=== PATIENT | female | born 1960 | race Two or more races ===

== ENCOUNTER → 2025-04-14 | Outpatient (CLI) | payer MEDICAID, SELFPAY ==
--- NOTE | 2025-04-14 09:45 | XR_ITS ---
Examination: Screening digital mammography, bilateral Computer aided detection 3-D breast Tomosynthesis, bilateral Date and time of exam: April 14, 2025 0940 hours Compared to mammograms dating to October 30, 2011 Indication: Screening Technique: Nonmagnified MLO, CC views of the breasts to been obtained, reconstructed from 3-D Tomosynthesis images. R2 computer aided detection program utilized for evaluation of suspicious masses and/or abnormal calcifications. 3-D Tomosynthesis images obtained. Findings: Scattered areas of fibroglandular density. 6 mm nodule indistinct margins 9:00 position left breast posterior depth Impression: BI-RADS Category 0: Incomplete: Need additional imaging evaluation Recommend follow-up spot tomographic views of 6 mm nodule indistinct margins 9:00 position left breast as well as bilateral breast sonography to complete the workup
== END | disposition home or self-care (01) ==
LOC: CDIM 09:32
PROVIDERS: Referring Provider Nurse Practitioner Primary Care; Visit Provider Nurse Practitioner Primary Care
DX: Z12.31 Encounter for screening mammogram for malignant neoplasm of breast (principal); R92.323 Mammographic fibroglandular density, bilateral breasts; N63.25 Unspecified lump in the left breast, overlapping quadrants
CPT/HCPCS: 77063; 77067

== ENCOUNTER → 2025-06-16 | Outpatient (CLI) | payer MEDICARE, MEDICAID, SELFPAY ==
--- NOTE | 2025-06-16 09:31 | XR_ITS ---
Examination: PA lateral chest 2 views TECHNIQUE: Upright PA lateral chest 2 views Date and time: June 16, 2025 0956 hours, comparison March 21, 2020. INDICATIONS: Shortness of breath with walking beginning one week ago, hypertension history. FINDINGS: Large retrocardiac gastric hernia. Mild enlargement left ventricle. Increased AP dimension chest Mild vascular congestion. No pulmonary edema. Severe osteopenia, kyphosis dorsal spine secondary to minor chronic osteoporotic wedging dorsal vertebral bodies IMPRESSION: COPD with hyperexpansion Mild enlargement left ventricle Mild vascular congestion
== END | disposition home or self-care (01) ==
PROVIDERS: PCP Nurse Practitioner Primary Care; Referring Provider Nurse Practitioner Primary Care; Visit Provider Nurse Practitioner Primary Care
DX: J44.9 Chronic obstructive pulmonary disease, unspecified (principal); I51.7 Cardiomegaly; R09.89 Other specified symptoms and signs involving the circulatory and respiratory systems
CPT/HCPCS: 71046

== ENCOUNTER 2025-06-19 12:16 | Inpatient (IN) | payer MEDICARE, MEDICAID, SELFPAY ==
[2025-06-19] VITALS (12 sets, daily range): BP systolic 109–143; BP diastolic 49–84; PULSE 56–107; RESP 16–22; TEMP 36.1–37.3; O2SAT 95–98; BMI 31.1; BMI 32.9
--- NOTE | 2025-06-19 12:46 | EKG_ITS ---
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
--- NOTE | 2025-06-19 12:46 | XR_ITS ---
Examination: CT abdomen with intravenous contrast CT pelvis with intravenous contrast 2-D coronal reconstructions 2-D sagittal reconstructions Date and time of exam:June 19, 2025 1509 hours INDICATIONS: Severe anemia, 6.3 hemoglobin. CTDI: vol (mGy) 10.6 DLP: (mGycm) 529 Technique: Multiple axial sections of the abdomen and pelvis have been obtained. 64 slice high-resolution scanner used. 3 mm axial sections have been obtained, post intravenous injection 60 cc [id number] 2-D sagittal, coronal reconstructions obtained. Low dose protocols were performed. One or more of the following dose reduction techniques were used; automated exposure control, adjustment of the mA and/or KV according to patient size, use of iterative reconstruction technique. Findings: No focal liver or splenic lesions No gallstones No pancreatic or adrenal mass. No renal or ureteral calculi, no hydronephrosis Abdominal aortic calcification no aneurysmal dilatation 10 mm fat-containing umbilical hernia Normal appendix No bowel obstruction Colonic diverticulosis, no diverticulitis Atrophic anteverted uterus No pelvic mass Urinary bladder intact Grade 1 anterolisthesis L5 on S1 Moderate to advanced narrowing hip joints IMPRESSION: No renal or ureteral calculi, no hydronephrosis Normal appendix No bowel obstruction Colonic diverticulosis, no diverticulitis
--- NOTE | 2025-06-19 12:47 | PD.EDRECHK ---
ED Recheck Abnl Lab Rx-RME/HPI General Chief Complaint: Recheck/Abnormal Lab/Rx Stated Complaint: HGB 6.2 Time Seen by Provider: 06/19/25 12:24 Arrival date/time: 06/19/25 12:16 RME / HPI RME / HPI narrative: 65-year-old female patient with significant history of hypertension, was sent to us by PCP for evaluation regarding hemoglobin of 6.3. Patient had a blood drawn in the clinic last week, and today was sent to us because result came back with a hemoglobin of 6.3, patient was noted to be more pale than usual, complaining of sleeping a lot, and low energy. Patient also complained shortness of breath with exertion. Denies any vomiting blood denies any black tarry stool. Patient's been taking diclofenac on a regular basis due to arthritis. Denies any abdominal pain. Related Data Home Medications ?Medication ?Instructions ?Recorded ?Confirmed amlodipine 10 mg tablet 10 mg PO QDAY 03/15/20 03/15/20 loratadine 10 mg tablet (Claritin) 10 mg PO QDAY 03/15/20 03/15/20 potassium chloride 10 mEq 10 meq PO QDAY 03/15/20 03/15/20 capsule,extended release acetaminophen 500 mg tablet 500 mg PO QID PRN Pain 03/18/20 03/18/20 (Acetaminophen Pain Relief) diphenhydramine HCl 25 mg capsule 25 mg PO TID PRN Pain 03/18/20 03/18/20 (Banophen) levofloxacin 500 mg tablet 500 mg PO QDAY 03/18/20 03/18/20 (Levaquin) metformin 1,000 mg tablet 1,000 mg PO BID 03/18/20 03/18/20 ondansetron HCl 8 mg tablet 8 mg PO QDAY 03/18/20 03/18/20 Allergies Allergy/AdvReac Type Severity Reaction Status Date / Time No Known Allergies Allergy Verified 06/19/25 12:18 Review of Systems Review of Systems Narrative Review of Systems: Review of system reviewed and within normal limits except mentioned in HPI ED Exam Narrative Physical exam: VITAL SIGNS: Reviewed. GENERAL APPEARANCE: Alert and interactive, follows commands, no acute distress, HEAD AND FACE: Non-traumatic. ENT: PERRL, pale conjunctiva, eyelid no trauma, Mucous membrane moist. NECK: Supple, nontender, no nuchal rigidity. CHEST: No tenderness, no crepitus, no paradoxical movement, no retractions. LUNGS: Clear, well ventilated, symmetric, no rales, no wheezing, no ronchi, no stridor, good breath sounds bilaterally. HEART: Regular rate, regular rhythm, no murmur, no gallops. ABDOMEN: Soft, positive bowel sounds, nondistended, no guarding, nontender, no rebound, no masses, RECTAL: Deferred. GENITAL: Deferred. NEUROLOGICAL: Gross motor function intact sensory function intact, Appropriate for age. MUSCULOSKELETAL: low back nontender, full range of motion. EXTREMITIES: Nontender, full range of motion. SKIN: Color pale, dry, no rash, no lacerations, no abrasions, no contusions. LYMPHATICS: Deferred. Course Quality Measures none Orders Category Date Time Status Place in Observation Status Routine Admission 06/19/25 15:45 Active COVID-19 Screening Questionnaire NOW Care 06/19/25 14:[address] Screening NOW Care 06/19/25 12:46 Active Decision to Admit X1 Care 06/19/25 14:59 Active EKG (ED ONLY) *Do not use* NOW Care 06/19/25 12:46 Completed Occult Blood,Stool (Nursing) NOW Care 06/19/25 12:46 Active Sequential Compression Device QSHIFT Care 06/19/25 15:50 Active Transfuse,blood/blood products ONCE Care 06/19/25 13:41 Active Consult to Gastroenterology Stat Cons 06/19/25 14:01 Ordered Diet Clear Liquid Diet 06/19/[address] abdomen pelvis w con Stat Exams 06/19/25 12:46 Completed EKG (ED Only) Stat Exams 06/19/25 12:46 Draft CBC AM DRAW Lab 06/20/25 05:00 Ordered CBC AM DRAW Lab 06/21/25 05:00 Ordered CBC AM DRAW Lab 06/22/25 05:00 Ordered CBC Stat Lab 06/19/25 13:08 Completed Comprehensive Metabolic Panel AM DRAW Lab 06/20/25 05:00 Ordered Comprehensive Metabolic Panel AM DRAW Lab 06/21/25 05:00 Ordered Comprehensive Metabolic Panel AM DRAW Lab 06/22/25 05:00 Ordered Comprehensive Metabolic Panel Stat Lab 06/19/25 13:08 Completed Occult Blood, Stool (LAB) Stat Lab 06/19/25 12:45 Completed Partial Thromboplastin Time Stat Lab 06/19/25 13:[address] Review Blood Smear Stat Lab 06/19/25 13:08 Completed Prothrombin Time with INR Stat Lab 06/19/25 13:08 Completed Troponin I Stat Lab 06/19/25 13:08 Completed Type and Screen Stat Lab 06/19/25 13:08 Results Urinalysis Stat Lab 06/19/25 12:46 Ordered prbc [Red Blood Cells] Stat Lab 06/19/25 13:08 Results Acetaminophen Tab [Tylenol Tab] Med 06/19/25 15:44 Active 650 mg PO Q6H PRN Ondansetron Inj [Zofran Inj] Med 06/19/25 15:50 Active 4 mg IVP Q6H PRN Pantoprazole Inj [Protonix Inj] Med 06/19/25 21:00 Active 40 mg IVP BID Pantoprazole Inj [Protonix Inj] Med 06/19/25 12:46 Discontinued 80 mg IVP X1 ONE Vital Signs Vital signs: Vital Signs Temperature 99.1 F 06/19/25 12:34 Pulse Rate 80 06/19/25 12:34 Respiratory Rate 17 06/19/25 12:34 Blood Pressure 133/76 H 06/19/25 12:34 Pulse Oximetry (%) 97 06/19/25 12:34 Oxygen Delivery Method Room Air 06/19/25 12:34 Recheck / Abnormal Lab / Rx MDM Narrative MDM Narrative:: 65-year-old female patient with significant history of hypertension, was sent to us by PCP for evaluation regarding hemoglobin of 6.3. Patient had a blood drawn in the clinic last week, and today was sent to us because result came back with a hemoglobin of 6.3, patient was noted to be more pale than usual, complaining of sleeping a lot, and low energy. Patient also complained shortness of breath with exertion. Denies any vomiting blood denies any black tarry stool. Patient's been taking diclofenac on a regular basis due to arthritis. Denies any abdominal pain. Patient is hemoglobin today was noted to be 6.0 hematocrit of 23.1 platelets normal the rest of the labs unremarkable. Patient tested positive for occult blood. CT scan of the abdomen pelvis showed No renal or ureteral calculi, no hydronephrosis Normal appendix No bowel obstruction Colonic diverticulosis, no diverticulitis Patient received IV Protonix, and 2 units packed RBC. I consulted Dr. Gomez, GI specialist on-call, thank you Dr. Gomez for accepting the consult Patient data External records reviewed:: None Clinical information provided by:: patient Social determinants that could affect healthcare access:: none Patient has the following chronic illnesses:: Arthritis chronically taking diclofenac, hypertension How is presenting disease/condition affected by chronic disease/condition?: exacerbated by Evaluation data The following diagnostics were reviewed and interpreted by me:: lab results, radiology exam(s) and EKG tracing(s) Lab and/or radiology exams considered but not ordered:: None Interpretation Summary: EKG showed normal sinus rhythm, ventricular rate of 70 bpm, no ST segment elevation or depression noted. Patient CT scan of the abdomen and pelvis came back unremarkable. The rest of the results see MDM Medications / Prescriptions Medications or Prescriptions considered but not ordered:: None Medication administrations:: Medication Administration History Acetaminophen (Acetaminophen 325 Mg Tablet) 650 mg PO Q6H PRN PRN Reason: Fever >101.5 Stop: 07/19/25 15:43 Ondansetron HCl (Ondansetron Inj 2 Mg/Ml Inj 2 Ml) 4 mg IVP Q6H PRN; Protocol PRN Reason: NAUSEA OR VOMITING Stop: 07/19/25 15:49 Pantoprazole Sodium (Pantoprazole Inj 40 Mg Vial) 40 mg IVP BID MARI Stop: 07/19/25 20:59 Discontinued Medications Pantoprazole Sodium (Pantoprazole Inj 40 Mg Vial) 80 mg IVP X1 ONE Stop: 06/19/25 12:47 Last Admin: 06/19/25 14:09 Dose: 80 mg Documented By: [facility] Pro[facility] IV, 2 units packed RBC Consultations Consultation(s) initiated? (list below): Yes Consultation #1 (Physician, Specialty, Details): Dr. Gomez Diagnosis Recheck Differential Diagnosis: other (Upper GI bleed, anemia, iron deficiency anemia) Most likely diagnosis given after review of the tests above:: Upper GI bleed, anemia Admission Indicated Admission indicated?: indicated Explain why admission is indicated or not indicated:: For further management Admission Request Was there a request for admission?: Yes Admission Attestation Admission request attestation: Discussed case with [Dr. Sales from Hospitalist service regarding admission. Discussed patients ED course, exam findings, labs, and radiology results. The Hospitalist [agrees] to accept the patient for admission. Disposition Plan Disposition Plan: Admit Discharge Plan Plan Patient Disposition: Admit Acute Care w/in Hospital Discharge Disposition comment: Stable Prescriptions/Referrals Prescriptions/Med Rec: No Action potassium chloride 10 mEq Capsule, Extended Release 10 meq PO QDAY amlodipine 10 mg Tablet 10 mg PO QDAY loratadine [Claritin] 10 mg Tablet 10 mg PO QDAY metformin 1,000 mg Tablet 1,000 mg PO BID ondansetron HCl 8 mg Tablet 8 mg PO QDAY acetaminophen [Acetaminophen Pain Relief] 500 mg Tablet 500 mg PO QID PRN (Reason: Pain) diphenhydramine HCl [Banophen] 25 mg Capsule 25 mg PO TID PRN (Reason: Pain) levofloxacin [Levaquin] 500 mg Tablet 500 mg PO QDAY Referrals: Pete (FRAN)Kerry FNP [Primary Care Provider] - In 1 week Problem List Clinical Impression: Anemia, UGIB (upper gastrointestinal bleed) Patient/Caregiver Discharge Instructions Discharge Activity: activity as tolerated Education Materials: Anemia Print Language: Indonesian Stand Alone Forms: Love Award Info., Patient Portal Info Letter
[2025-06-19 13:13] LABS: OBS Card Expiration Date 082828; OBS Card Lot # 0124; OBS Developer Expiration Date 090926; OBS Developer Lot # 23003; OBS Performed By aceio; OBS QC OK? Yes; Occult Blood, Stool Positive (Negative)
[2025-06-19 13:22] LABS: Basophils # (Auto) 0.0 Thou/mm3 (0.0-0.2); Basophils % (Auto) 1 % (0-2.5); Eosinophils # (Auto) 0.0 Thou/mm3 (0.0-0.5); Eosinophils % (Auto) 1 % (0-10); Hematocrit 23.1 % (36.0-46.0); Immature Granulocytes Auto 0.01 Thou/mm3 (0.00-0.00); Lymphocytes # (Auto) 1.0 Thou/mm3 (1.0-4.8); Lymphocytes % (Auto) 24 % (10-50); Mean Corpuscular HGB Conc 26.0 g/dl (31.0-37.0); Mean Corpuscular Hemoglobin 18.5 pg (25.0-35.0); Mean Corpuscular Volume 71 fL (80-100); Monocytes # (Auto) 0.5 Thou/mm3 (0.0-0.8); Monocytes % (Auto) 12 % (0-12); Neutrophils # (Auto) 2.6 Thou/mm3 (1.8-7.7); Neutrophils % (Auto) 62 % (37-80); Nucleated Red Blood Cell # 0.00 Thou/mm3 (0.00-0.00); Nucleated Red Blood Cell % 0 /100 WBC (0); Platelet Count 370 Thou/mm3 (140-440); RDW Standard Deviation 56.8 fL (36.4-46.3); Red Blood Count 3.24 Miln/mm3 (4.00-5.20); White Blood Count 4.1 Thou/mm3 (3.6-11.0)
[2025-06-19 13:38] LABS: Alanine Aminotransferase 14 U/L (10-49); Albumin, Serum 4.3 gm/dL (3.4-4.8); Albumin/Globulin Ratio 2.3 (1.2-2.2); Alkaline Phosphatase 111 U/L (46-116); Anion Gap 7 (7-16); Aspartate Amino Transferase 20 U/L (0-34); BUN/Creatinine Ratio 20 Ratio (12-20); Bilirubin,Total 0.5 mg/dL (0.3-1.2); Blood Urea Nitrogen 12 mg/dL (9-23); Calcium 9.1 mg/dL (8.3-10.6); Calcium (Corrected) 9.1 mg/dL (8.5-10.1); Carbon Dioxide 25.6 mMol/L (20.0-31.0); Chloride 108 mMol/L (98-107); Creatinine (Component) 0.6 mg/dL (0.6-1.3); Globulin 1.9 gm/dL (2.3-3.5); Glucose 118 mg/dL (74-106); Osmolality,Calculated 281 (275-295); Potassium 4.0 mMol/L (3.4-5.1); Sodium 141 mMol/L (136-145); Total Protein 6.2 gm/dL (5.7-8.2); Troponin I < 0.002 ng/mL (0.0-0.045); eGFR > 60 See Note
[2025-06-19 13:39] LABS: Hemoglobin 6.0 g/dL (12.0-16.0)
[2025-06-19 13:43] LABS: INR 1.0 (0.9-1.3); Partial Thromboplastin Time 24.8 Seconds (22.0-36.0); Prothrombin Time 10.8 Seconds (9.0-12.2)
[2025-06-19 15:33] LABS: Path Review Blood Smear Sent to Pathologist
--- NOTE | 2025-06-19 16:21 | ESHP_ITS ---
<Statement entered by Paddy Salgado MD - 06/25/25 17:38> I reviewed above note and agree with findings and plans. I have also personally examined the patient with medicine team and went over assessment and plan with medical team including development intern and resident physician. <Statement entered by Tenisha Sales MD - 06/20/25 13:56> Ms. Ling is a 65-year-old female with past medical history significant for hypertension, symptomatic anemia requiring blood transfusions, osteoarthritis who came in on 06/19 with low hemoglobin of 6.3 by her PCP and will be admitted for further management of acute anemia most likely in the setting of iron deficiency anemia. Patient has had transfusions in the past. FOBT in the ER was positive however no black tarry stools noted in rectal exam or on further history taking. Patient will receive 2 units of packed RBCs and will repeat H&H posttransfusion. Patient will be made n.p.o. for EGD and colonoscopy per GI recommendations. Anticipate discharge within 24 to 48 hours. I discussed with and supervised the development intern physician who took care of this patient. I personally saw and examined the patient and discussed the assessment and plan with the entire medicine team, including my attending Dr. Salgado, I agree with most of the assessment and plan as documented below Tenisha Sales M.D. PGY-3 Disclaimer: Despite multiple revisions, due to the dictation software being used, the document bellow may not be free of grammatical errors including phonetic/typographic errors. However, this does not deter from our commitment to providing health care in the patient's best interest in mind. Documentation for date of: 06/19/25 HPI History of Present Illness Chief complaint: Abnormal lab History of present illness: This is a 65yof with a h/o HTN, symptomatic anemia requiring blood transfusions, and osteoarthritis who presents to the ED on 06/19 after she was found to have a hgb of 6.3 by her PCP. Her daughter reports that the patient had become gradually more fatigued over the course of a few weeks, taking more frequent naps. The patient attributed this fatigue to work, but this persisted after she was off for the fall. Around 2 years ago she had a similar episode which also required transfusion with 2 prbcs. She was worked up and ultimately treated for VINCENZO with oral Fe. She improved and was instructed to stop taking the Fe. She was stable up until the last few weeks. She denies Fever, chills, unexplained weight loss, N/V/D, abdominal pain, bloody or melanotic stools. She has never had a colonoscopy in the past. Past Medical history As above. Medications: Lorsartan Amlodipine Diclofenac Past Surgical History unspecified hernia repair in the 90s Social History Denies Alcohol, tobacco, and recreational drug use. 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 ED Course: -Patient presents with BP 133/76, HR 80, T 99.1, RR 17, O2 sat 97% on RA. -CBC notable for hgb of 6. 2 units of PRBCs were ordered. -FOBT positive, MARIAH negative for melanotic stool. -Dr. Gomez was called, and recommended admission for EGD and Colonoscopy to rule out GI bleed. -Patient admitted to obs for acute anemia. Exam Vital Signs Temp Pulse Resp BP Pulse Ox O2 Del Method 99.1 F 80 17 133/76 H 97 Room Air 06/19/25 12:34 06/19/25 12:34 06/19/25 12:34 06/19/25 12:34 06/19/25 12:34 06/19/25 12:34 Narrative Exam General: Pleasant patient, laying in bed, no acute distress. HEENT: No cervical lymphadenopathy Mucosa moist without lesion. Pupils are equal and reactive to light bilaterally Cardiovascular: Normal S1 and S2. Regular rate and rhythm. No murmur appreciated Respiratory: Clear to auscultation bilaterally without wheezes or crackles. Abdomen: Soft, nontender, not distended, Skin: Dry, no rashes or bruising Musculoskeletal: No gross injuries. Able to move all 4 extremities. Some varicose veins. Neuro: Alert and oriented x3. No focal neuro deficits. Psych: Normal affect and mood Results: Labs 06/19/25 13:08 06/19/25 13:08 Labs: Short CBC 06/19/25 Range/Units 13:08 WBC 4.1 (3.6-11.0) Thou/mm3 Hgb 6.0 L* (12.0-16.0) g/dL Hct 23.1 L (36.0-46.0) % Plt Count 370 (140-440) Thou/mm3 BMP 06/19/25 13:08 Sodium 141 Potassium 4.0 Chloride 108 H Carbon Dioxide 25.6 BUN 12 Creatinine 0.6 Glucose 118 H Calcium 9.1 Cardiac Enzymes 06/19/25 Range/Units 13:08 Troponin I < 0.002 (0.0-0.045) ng/mL Liver Function 06/19/25 Range/Units 13:08 Total Bilirubin 0.5 (0.3-1.2) mg/dL AST 20 (0-34) U/L ALT 14 (10-49) U/L Alkaline Phosphatase 111 (46-116) U/L Albumin 4.3 (3.4-4.8) gm/dL Quality Measures Quality Measures none Advance care planning discussed with:: patient and child Medications Home Medications and Allergies Home Medications ?Medication ?Instructions ?Recorded ?Confirmed ?Type amlodipine 10 mg tablet 10 mg PO QDAY 03/15/2006/19 History acetaminophen 500 mg tablet 500 mg PO QID PRN Pain 06/19/25 History (Acetaminophen Pain Relief) diclofenac sodium 50 mg 50 mg PO BID PRN pain 06/19/25 History tablet,delayed release losartan 50 mg tablet 50 mg PO QDAY PRN high blood 06/19/25 06/19/25 History pressure Allergies Allergy/AdvReac Type Severity Reaction Status Date / Time No Known Allergies Allergy Verified 06/19/25 12:18 Visit Medications Acetaminophen (Acetaminophen 325 Mg Tablet) 650 mg PO Q6H PRN PRN Reason: Fever >101.5 Stop: 07/19/25 15:43 Ondansetron HCl (Ondansetron Inj 2 Mg/Ml Inj 2 Ml) 4 mg IVP Q6H PRN; Protocol PRN Reason: NAUSEA OR VOMITING Stop: 07/19/25 15:49 Pantoprazole Sodium (Pantoprazole Inj 40 Mg Vial) 40 mg IVP BID MARI Stop: 07/19/25 20:59 Discontinued Medications Pantoprazole Sodium (Pantoprazole Inj 40 Mg Vial) 80 mg IVP X1 ONE Stop: 06/19/25 12:47 Last Admin: 06/19/25 14:09 Dose: 80 mg Assessment & Plan Plan 65 yof with a h/o HTN, osteoarthritis, and prior symptomatic anemia who presents with hgb of 6.0, admitted for acute anemia work up. #Acute Anemia Patient with prior history of needing transfusions for symptomatic anemia, deemed VINCENZO at the time. No N/V, or bloody stool on history, PE largely benign without any abdominal pain. Hgb 6, FOBT+ without melanotic stool. GI bleed considered versus severe VINCENZO. Dr. Gomez with GI consulted and recommended admission for possible EGD and colonoscopy to rule out GI bleed. -Admit obs -CLD, NPO at midnight. -2 units PRBCs -Repeat H&H post transfusion. -am Iron panel and ferritin. #HTN Chronic, hemodynamically stable in the ED with most recent bp of 129/78 -Consider restarting home meds if hypertensive during stay, hold for now. Health Maintenance: DVT prophylaxis: SCDs Diet: CLD Goff: No Lines: PIV CODE STATUS: Full code Disposition:pending EGD and colonoscopy. Patient's plan and care discussed with my attending, Dr. Naomi MD. Jonathan Evans, PGY-1 ([facility] Resident)
--- NOTE | 2025-06-19 17:53 | PC.NURSE ---
Patient arrived AAO x3 first unit of blood running.
[2025-06-19 19:41] LABS: Collection Type, Urine Clean Catch
[2025-06-19 19:48] LABS: Bilirubin,Urine Negative (Negative); Blood,Urine Negative (Negative); Clarity,Urine Clear (Clear/Hazy); Color,Urine Lt-Yellow (Lt Yel-Yel); Glucose, Urine Negative (Negative); Ketones,Urine Negative (Negative); Leukocyte Esterase,Urine Negative (Negative); Nitrite,Urine Negative (Negative); PH,Urine 7.0 (5.0-7.0); Protein,Urine Negative (Neg - Trace); RBC,Urine 1 /hpf (0-3); Specific Gravity,Urine 1.018 (1.001-1.035); Squamous Epithelial Cell,Urine 3 /hpf (0-5); Urobilinogen,Urine Negative mg/dL (0.0-1.0); WBC,Urine 2 /hpf (0-5)
--- NOTE | 2025-06-19 20:17 | PD.IMCONS ---
HPI Data of Consult Requesting Physician: Lamar Gomez MD Primary Care Provider: CATIE Hebert(ARIACHL) Consult Narrative Reason for consult: FOBT positive hemoglobin 6.3 g iron saturation 3% weakness and dizziness History of present illness: 65-year-old female evaluated at the request of ER team for her PCP sent in the patient to the ER for a hemoglobin of 6.3 g down her laboratory workup 2 days ago Patient has been feeling weak and sleepy but denies having any hematochezia or melanotic stools or hematemesis She does take diclofenac for her arthritic pain on a as needed basis Rectal exam in the ER was positive according to CATIE Mcclain I was approached by Johny and recommended admission and 2 units of PRBCs Also wanted to draw the iron level which came back iron saturation of only 3% CT scan of the abdomen pelvis done at my request basically was negative I met the family in the patient's room 2 wonderful daughters and they also gave me no history of any active GI bleed at home cc:: cc: Lamar Gomez MD Review of Systems Review of Systems Systems Reviewed: All systems reviewed, normal except as documented Past Medical History Surgical History OTHER SURGICAL HX: As in the history of present illness Meds Home Medications and Allergies Home Medications ?Medication ?Instructions ?Recorded ?Confirmed ?Type amlodipine 10 mg tablet 10 mg PO QDAY 03/15/20 06/19/25 History acetaminophen 500 mg tablet 500 mg PO QID PRN Pain 03/18/20 06/19/25 History (Acetaminophen Pain Relief) diclofenac sodium 50 mg 50 mg PO BID PRN pain 06/19/25 06/19/25 History tablet,delayed release losartan 50 mg tablet 50 mg PO QDAY PRN high blood 06/19/25 06/19/25 History pressure Allergies Allergy/AdvReac Type Severity Reaction Status Date / Time No Known Allergies Allergy Verified 06/19/25 12:18 Exam Vital Signs Temp Pulse Resp BP Pulse Ox O2 Del Method 97.3 F 71 16 131/84 H 97 Room Air 06/19/25 20:05 06/19/25 20:05 06/19/25 18:00 06/19/25 20:05 06/19/25 18:00 06/19/25 18:00 Constitutional Comments: Alert active oriented Routine Respiratory Exam Comments: Normal to percussion and auscultation Results Labs 06/20/25 04:50 06/20/25 04:50 Labs: Short CBC 06/19/25 Range/Units 13:08 WBC 4.1 (3.6-11.0) Thou/mm3 Hgb 6.0 L* (12.0-16.0) g/dL Hct 23.1 L (36.0-46.0) % Plt Count 370 (140-440) Thou/mm3 BMP 06/19/25 13:08 Sodium 141 Potassium 4.0 Chloride 108 H Carbon Dioxide 25.6 BUN 12 Creatinine 0.6 Glucose 118 H Calcium 9.1 Cardiac Enzymes 06/19/25 Range/Units 13:08 Troponin I < 0.002 (0.0-0.045) ng/mL Liver Function 06/19/25 Range/Units 13:08 Total Bilirubin 0.5 (0.3-1.2) mg/dL AST 20 (0-34) U/L ALT 14 (10-49) U/L Alkaline Phosphatase 111 (46-116) U/L Albumin 4.3 (3.4-4.8) gm/dL Urine 06/19/25 Range/Units 19:35 Urine Color Lt-Yellow (Lt Yel-Yel) Urine Clarity Clear (Clear/Hazy) Urine pH 7.0 (5.0-7.0) Ur Specific [place] 1.018 (1.001-1.035) Urine Protein Negative (Neg - Trace) Urine Glucose (UA) Negative (Negative) Assessment and Plan Additional Assessment & Plan Additional Plan: # Unexplained iron deficiency anemia Plan Agree with the blood transfusion Consent obtained for fiberoptic esophagogastroduodenoscopy initially under intravenous moderate sedation because of the history of diclofenac usage If negative will schedule a fiberoptic colonoscopy Thank you very much for the opportunity to participate in the care of this patient Other medical problems include Essential hypertension
[2025-06-19 23:36] LABS: Hematocrit 29.5 % (36.0-46.0)
[2025-06-19 23:39] LABS: Hemoglobin 8.6 g/dL (12.0-16.0)
[2025-06-20] VITALS (14 sets, daily range): BP systolic 113–168; BP diastolic 41–97; PULSE 57–75; RESP 12–23; TEMP 36.6–36.9; O2SAT 92–98
[2025-06-20 05:29] LABS: Basophils # (Auto) 0.0 Thou/mm3 (0.0-0.2); Basophils % (Auto) 1 % (0-2.5); Eosinophils # (Auto) 0.1 Thou/mm3 (0.0-0.5); Eosinophils % (Auto) 2 % (0-10); Hematocrit 28.1 % (36.0-46.0); Immature Granulocytes Auto 0.02 Thou/mm3 (0.00-0.00); Lymphocytes # (Auto) 1.3 Thou/mm3 (1.0-4.8); Lymphocytes % (Auto) 26 % (10-50); Mean Corpuscular HGB Conc 29.2 g/dl (31.0-37.0); Mean Corpuscular Hemoglobin 21.6 pg (25.0-35.0); Mean Corpuscular Volume 74 fL (80-100); Monocytes # (Auto) 0.6 Thou/mm3 (0.0-0.8); Monocytes % (Auto) 11 % (0-12); Neutrophils # (Auto) 2.9 Thou/mm3 (1.8-7.7); Neutrophils % (Auto) 59 % (37-80); Nucleated Red Blood Cell # 0.00 Thou/mm3 (0.00-0.00); Nucleated Red Blood Cell % 0 /100 WBC (0); Platelet Count 293 Thou/mm3 (140-440); RDW Standard Deviation 55.8 fL (36.4-46.3); Red Blood Count 3.79 Miln/mm3 (4.00-5.20); White Blood Count 4.9 Thou/mm3 (3.6-11.0)
[2025-06-20 05:35] LABS: Hemoglobin 8.2 g/dL (12.0-16.0)
[2025-06-20 05:55] LABS: Ferritin 6 ng/mL (7.3-270.7); Iron 14 mcg/dL (50-170); Percent Iron Saturation 3 % (20-55); Total Iron Binding Capacity 404 mcg/dL (250-425); Unsaturated Iron Binding 390 (225-295)
[2025-06-20 05:56] LABS: Alanine Aminotransferase 12 U/L (10-49); Albumin, Serum 3.9 gm/dL (3.4-4.8); Albumin/Globulin Ratio 2.1 (1.2-2.2); Alkaline Phosphatase 100 U/L (46-116); Anion Gap 10 (7-16); Aspartate Amino Transferase 19 U/L (0-34); BUN/Creatinine Ratio 12 Ratio (12-20); Bilirubin,Total 0.7 mg/dL (0.3-1.2); Blood Urea Nitrogen 7 mg/dL (9-23); Calcium 8.8 mg/dL (8.3-10.6); Calcium (Corrected) 8.9 mg/dL (8.5-10.1); Carbon Dioxide 23.8 mMol/L (20.0-31.0); Chloride 110 mMol/L (98-107); Creatinine (Component) 0.6 mg/dL (0.6-1.3); Estimated Creatinine Clearance 80.9 mL/min (>60); Globulin 1.9 gm/dL (2.3-3.5); Glucose 87 mg/dL (74-106); Osmolality,Calculated 283 (275-295); Potassium 3.6 mMol/L (3.4-5.1); Sodium 144 mMol/L (136-145); Total Protein 5.8 gm/dL (5.7-8.2); eGFR > 60 See Note
--- NOTE | 2025-06-20 11:49 | PC.SS ---
Assurance Analyst (BILLY) Praveena met with the patient at the bedside to complete the initial assessment and discuss the discharge plan. Per the chart review, the patient presented to the emergency department with c/o found to have a hgb of 6.3 by her PCP. SW met with the patient at the bedside. SW introduced self, role, and the reason for the consult. Patient agreed to engage in the assessment. Patient is alert and oriented to person, place, time, and situation. Patient is Sussy Ling, 65 y/o, , , Filipino-speaking female residing with her at [address] [place] [address]. Patient named her daughter, Daiana Ling, , as her surrogate medical decision maker. Patient reports being independent and able to attend to her ADLs with no DME. Patient's PCP is Dr. Kerry Freeman. 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 Patient's discharge plan is home with family support and private transportation by family. Per LATOYA Bedoya, the patient is A/O X4, pending an EGD. Surrogate medical decision maker: Daughter, Daiana Ling, Discharge plan: Home
--- NOTE | 2025-06-20 14:44 | ESPR_ITS ---
<Statement entered by Paddy Salgado MD - 06/25/25 17:39> I reviewed above note and agree with findings and plans. I have also personally examined the patient with medicine team and went over assessment and plan with medical team including programming internship and resident physician. Documentation for date of: 06/20/25 Subjective Subjective Interval history: Patient examined at bedside, has no major complaints. Has not had a bowel movement since yesterday. Hemoglobin 8.2 after receiving 2 units RBC. Other labs unremarkable, vitals are stable. She is n.p.o. for EGD today. Possible colonoscopy tomorrow depending on EGD results. Continue to monitor hemoglobin with transfusion of 1 unit if hemoglobin less than 7. Exam Vital Signs Temp Pulse Resp BP Pulse Ox O2 Del Method 98.0 F 71 17 147/73 H 94 L Room Air 06/20/25 12:00 06/20/25 12:00 06/20/25 12:00 06/20/25 12:00 06/20/25 12:00 06/20/25 12:00 Narrative Exam General:Middle age female, laying in bed, no acute distress. HEENT: No cervical lymphadenopathy, Mucosa moist without lesion. Pupils are equal and reactive to light bilaterally Cardiovascular: Normal S1 and S2. Regular rate and rhythm. No murmur appreciated Respiratory: Clear to auscultation bilaterally without wheezes or crackles. Abdomen: Soft, nontender, not distended Skin: Dry, no rashes or bruising Musculoskeletal: No gross injuries. Able to move all 4 extremities. Some varicose veins. Neuro: Alert and oriented x3. No focal neuro deficits. Psych: Normal affect and mood Objective Labs 06/20/25 04:50 06/20/25 04:50 Labs: Laboratory Results - last 24 hr 06/19/25 06/19/25 06/19/25 13:08 19:35 23:25 WBC RBC Hgb 8.6 L D Hct 29.5 L MCV MCH MCHC RDW Std Deviation Plt Count Neut % (Auto) Lymph % (Auto) [place] % (Auto) Eos % (Auto) Baso % (Auto) Neut # (Auto) Lymph # (Auto) [place] # (Auto) Eos # (Auto) Baso # (Auto) Immature Gran # (Auto) Absolute Nucleated RBC Immature Gran % Nucleated RBC % Smear Path Review Sent to Pathologist Sodium Potassium Chloride Carbon Dioxide Anion Gap BUN Creatinine Estim Creat Clear Calc eGFR BUN/Creatinine Ratio Glucose Calculated Osmolality Calcium Corrected Calcium Iron TIBC Iron Saturation Unsat Iron Binding Ferritin Total Bilirubin AST ALT Alkaline Phosphatase Total Protein Albumin Globulin Albumin/Globulin Ratio Ur Collection Type Clean Catch Urine Color Lt-Yellow Urine Clarity Clear Urine pH 7.0 Ur Specific [place] 1.018 Urine Protein Negative Urine Glucose (UA) Negative Urine Ketones Negative Urine Blood Negative Urine Nitrite Negative Urine Bilirubin Negative Urine Urobilinogen (Auto) Negative Ur Leukocyte Esterase Negative Urine RBC 1 Urine WBC 2 Ur Squamous Epith Cells 3 Urine Bacteria None Blood Type O Positive Antibody Screen NEGATIVE Crossmatch See Detail Blood Bank Wristband ID Yes 06/20/25 04:50 WBC 4.9 RBC 3.79 L Hgb 8.2 L Hct 28.1 L MCV 74 L MCH 21.6 L MCHC 29.2 L RDW Std Deviation 55.8 H Plt Count 293 D Neut % (Auto) 59 Lymph % (Auto) 26 [place] % (Auto) 11 Eos % (Auto) 2 Baso % (Auto) 1 Neut # (Auto) 2.9 Lymph # (Auto) 1.3 [place] # (Auto) 0.6 Eos # (Auto) 0.1 Baso # (Auto) 0.0 Immature Gran # (Auto) 0.02 H Absolute Nucleated RBC 0.00 Immature Gran % 0 Nucleated RBC % 0 Smear Path Review Sodium 144 Potassium 3.6 Chloride 110 H Carbon Dioxide 23.8 Anion Gap 10 BUN 7 L Creatinine 0.6 Estim Creat Clear Calc 80.9 eGFR > 60 BUN/Creatinine Ratio 12 Glucose 87 Calculated Osmolality 283 Calcium 8.8 Corrected Calcium 8.9 Iron 14 L TIBC 404 Iron Saturation 3 L Unsat Iron Binding 390 H Ferritin 6 L Total Bilirubin 0.7 AST 19 ALT 12 Alkaline Phosphatase 100 Total Protein 5.8 Albumin 3.9 Globulin 1.9 L Albumin/Globulin Ratio 2.1 Ur Collection Type Urine Color Urine Clarity Urine pH Ur Specific [place] Urine Protein Urine Glucose (UA) Urine Ketones Urine Blood Urine Nitrite Urine Bilirubin Urine Urobilinogen (Auto) Ur Leukocyte Esterase Urine RBC Urine WBC Ur Squamous Epith Cells Urine Bacteria Blood Type Antibody Screen Crossmatch Blood Bank Wristband ID Quality Measures Quality Measures none Advance care planning discussed with:: patient Assessment & Plan Assessment Current Active Medications: Generic Name Dose Route Start Last Admin Trade Name Freq PRN Reason Stop Dose Admin Acetaminophen 650 mg 06/20/25 11:07 Acetaminophen 325 Mg Tablet PO 07/19/25 15:43 Q6H PRN Fever >100.4 Ondansetron HCl 4 mg 06/19/25 15:50 Ondansetron Inj 2 Mg/Ml Inj 2 Ml IVP 07/19/25 15:49 Q6H PRN NAUSEA OR VOMITING Protocol Pantoprazole Sodium 40 mg 06/19/25 21:00 06/20/25 09:03 Pantoprazole Inj 40 Mg Vial IVP 07/19/25 20:59 40 mg BID MARI Administration Plan 65 yof with a h/o HTN, osteoarthritis, and prior symptomatic anemia who presents with hgb of 6.0, admitted for acute anemia work up. #Acute Anemia Patient with prior history of needing transfusions for symptomatic anemia, deemed VINCENZO at the time. No N/V, or bloody stool on history, PE largely benign without any abdominal pain. Hgb 6, FOBT+ without melanotic stool. GI bleed considered versus severe VINCENZO. Dr. Gomez with GI consulted and recommended admission for possible EGD and colonoscopy to rule out GI bleed. She is s/p 2 units pRBC since admission. Iron 14, ferritin 6, TIBC 404 -NPO for EGD -transfuse if Hb <7 #HTN Chronic, hemodynamically stable in the ED with most recent bp of 129/78 -Consider restarting home meds if hypertensive during stay, hold for now. Health Maintenance: DVT prophylaxis: SCDs Diet: NPO Goff: No Lines: PIV CODE STATUS: Full code Disposition:pending EGD Patient's plan and care discussed with my attending, Dr. Salgado. Izabella Hayes PGY2
[2025-06-20] MEDS: NA SU/NAHCO3/KC/PEG (Golytely) 4,000 ML BTL 4000 ML PO (16:37)
[2025-06-21] VITALS (15 sets, daily range): BP systolic 107–157; BP diastolic 65–84; PULSE 59–80; RESP 12–26; TEMP 36.4–36.6; O2SAT 91–99
[2025-06-21 05:26] LABS: Basophils # (Auto) 0.0 Thou/mm3 (0.0-0.2); Basophils % (Auto) 1 % (0-2.5); Eosinophils # (Auto) 0.1 Thou/mm3 (0.0-0.5); Eosinophils % (Auto) 2 % (0-10); Hematocrit 29.1 % (36.0-46.0); Immature Granulocytes Auto 0.01 Thou/mm3 (0.00-0.00); Lymphocytes # (Auto) 1.2 Thou/mm3 (1.0-4.8); Lymphocytes % (Auto) 24 % (10-50); Mean Corpuscular HGB Conc 28.5 g/dl (31.0-37.0); Mean Corpuscular Hemoglobin 21.3 pg (25.0-35.0); Mean Corpuscular Volume 75 fL (80-100); Monocytes # (Auto) 0.6 Thou/mm3 (0.0-0.8); Monocytes % (Auto) 11 % (0-12); Neutrophils # (Auto) 3.2 Thou/mm3 (1.8-7.7); Neutrophils % (Auto) 62 % (37-80); Nucleated Red Blood Cell # 0.00 Thou/mm3 (0.00-0.00); Nucleated Red Blood Cell % 0 /100 WBC (0); Platelet Count 275 Thou/mm3 (140-440); RDW Standard Deviation 57.1 fL (36.4-46.3); Red Blood Count 3.90 Miln/mm3 (4.00-5.20); White Blood Count 5.1 Thou/mm3 (3.6-11.0)
[2025-06-21 05:29] LABS: Hemoglobin 8.3 g/dL (12.0-16.0)
[2025-06-21 06:00] LABS: Alanine Aminotransferase 12 U/L (10-49); Albumin, Serum 4.0 gm/dL (3.4-4.8); Albumin/Globulin Ratio 2.0 (1.2-2.2); Alkaline Phosphatase 101 U/L (46-116); Anion Gap 9 (7-16); Aspartate Amino Transferase 20 U/L (0-34); BUN/Creatinine Ratio 12 Ratio (12-20); Bilirubin,Total 0.8 mg/dL (0.3-1.2); Blood Urea Nitrogen 7 mg/dL (9-23); Calcium 9.2 mg/dL (8.3-10.6); Calcium (Corrected) 9.2 mg/dL (8.5-10.1); Carbon Dioxide 24.9 mMol/L (20.0-31.0); Chloride 110 mMol/L (98-107); Creatinine (Component) 0.6 mg/dL (0.6-1.3); Estimated Creatinine Clearance 80.9 mL/min (>60); Globulin 2.0 gm/dL (2.3-3.5); Glucose 80 mg/dL (74-106); Osmolality,Calculated 283 (275-295); Potassium 3.7 mMol/L (3.4-5.1); Sodium 144 mMol/L (136-145); Total Protein 6.0 gm/dL (5.7-8.2); eGFR > 60 See Note
[2025-06-21] MEDS: IRON SUCROSE CPLX INJ 20 MG/ML VIAL 5 ML 200 MG IVP (11:28)
--- NOTE | 2025-06-21 12:39 | ESPR_ITS ---
<Statement entered by Paddy Salgado MD - 06/25/25 17:40> I reviewed above note and agree with findings and plans. I have also personally examined the patient with medicine team and went over assessment and plan with medical team including merchandising intern and resident physician. <Statement entered by Izabella Hayes MD - 06/21/25 13:02> Patient examined at bedside. No events overnight. Vitals are stable, hemoglobin stable 8.3. Underwent EGD yesterday which did not reveal any source of bleed. Plan for colonoscopy this evening. Continue GoLyetly prep. Will start IV iron for patient's iron deficiency anemia. Anticipate discharge next 24hrs. The patient's management plan was discussed with my attending physician Dr. Salgado. Izabella Hayes, PGY-2 Documentation for date of: 06/21/25 Subjective Subjective Interval history: Patient examined at bedside. NAOE. Patient is feeling a bit better today after her blood transfusions. Hgb remains stable around 8. Iron labs were notable for Fe 14 (L), TIBC 404, Iron Sat 3 (L) ,and ferritin 6 (L). EGD yesterday showed erythematous gastritis, erythematous duodenitis, but normal esophagous, and no obvious source of bleeding. IV iron 200mg given today, plan for second bag tomorrow. Colonoscopy today. Exam Vital Signs Temp Pulse Resp BP Pulse Ox O2 Del Method O2 Flow Rate 97.5 F 66 17 129/77 94 L Room Air 3 06/21/25 08:00 06/21/25 08:00 06/21/25 08:00 06/21/25 08:00 06/21/25 08:00 06/21/25 08:00 06/20/25 15:00 Narrative Exam General:Middle age female, laying in bed, no acute distress. HEENT: No cervical lymphadenopathy, Mucosa moist without lesion. Pupils are equal and reactive to light bilaterally Cardiovascular: Normal S1 and S2. Regular rate and rhythm. No murmur appreciated Respiratory: Clear to auscultation bilaterally without wheezes or crackles. Abdomen: Soft, nontender, not distended Skin: Dry, no rashes or bruising Musculoskeletal: No gross injuries. Able to move all 4 extremities. Some varicose veins in the ankles. Neuro: Alert and oriented x3. No focal neuro deficits. Psych: Normal affect and mood Objective Labs 06/21/25 04:41 06/21/25 04:41 Labs: Laboratory Results - last 24 hr 06/21/25 04:41 WBC 5.1 RBC 3.90 L Hgb 8.3 L Hct 29.1 L MCV 75 L MCH 21.3 L MCHC 28.5 L RDW Std Deviation 57.1 H Plt Count 275 Neut % (Auto) 62 Lymph % (Auto) 24 [place] % (Auto) 11 Eos % (Auto) 2 Baso % (Auto) 1 Neut # (Auto) 3.2 Lymph # (Auto) 1.2 [place] # (Auto) 0.6 Eos # (Auto) 0.1 Baso # (Auto) 0.0 Immature Gran # (Auto) 0.01 H Absolute Nucleated RBC 0.00 Immature Gran % 0 Nucleated RBC % 0 Sodium 144 Potassium 3.7 Chloride 110 H Carbon Dioxide 24.9 Anion Gap 9 BUN 7 L Creatinine 0.6 Estim Creat Clear Calc 80.9 eGFR > 60 BUN/Creatinine Ratio 12 Glucose 80 Calculated Osmolality 283 Calcium 9.2 Corrected Calcium 9.2 Total Bilirubin 0.8 AST 20 ALT 12 Alkaline Phosphatase 101 Total Protein 6.0 Albumin 4.0 Globulin 2.0 L Albumin/Globulin Ratio 2.0 Quality Measures Quality Measures none Advance care planning discussed with:: patient Assessment & Plan Assessment Current Active Medications: Generic Name Dose Route Start Last Admin Trade Name Freq PRN Reason Stop Dose Admin Acetaminophen 650 mg 06/20/25 11:07 Acetaminophen 325 Mg Tablet PO 07/19/25 15:43 Q6H PRN Fever >100.4 Ondansetron HCl 4 mg 06/19/25 15:50 Ondansetron Inj 2 Mg/Ml Inj 2 Ml IVP 07/19/25 15:49 Q6H PRN NAUSEA OR VOMITING Protocol Pantoprazole Sodium 40 mg 06/19/25 21:00 06/21/25 09:32 Pantoprazole Inj 40 Mg Vial IVP 07/19/25 20:59 40 mg BID MARI Administration Polyethylene Glycol/Electrolytes 4,000 ml 06/20/25 15:14 Na Correia/Nahco3/Corky/Peg (Golytely) 4,000 Ml Btl PO X1 PRN colonoscopy Plan 65 yof with a h/o HTN, osteoarthritis, and prior symptomatic anemia who presents with hgb of 6.0, admitted for acute anemia work up. #Acute Anemia Patient with prior history of needing transfusions for symptomatic anemia, deemed VINCENZO at the time. No N/V, or bloody stool on history, PE largely benign without any abdominal pain. Hgb 6, FOBT+ without melanotic stool. GI bleed considered versus severe VINCENZO. Dr. Gomez with GI consulted and recommended admission for possible EGD and colonoscopy to rule out GI bleed. EGD on 06/20 showed erythematous gastritis, erythematous duodenitis, but normal esophagous, and no obvious source of bleeding. She is s/p 2 units pRBC since admission. Iron 14, ferritin 6, TIBC 404 -IV Iron 200mg today, repeat tomorrow. -transfuse if Hb <7 -Colonoscopy today. #HTN Chronic, hemodynamically stable in the ED with most recent bp of 129/78 -Consider restarting home meds if hypertensive during stay, hold for now. Health Maintenance: DVT prophylaxis: SCDs Diet: NPO Goff: No Lines: PIV CODE STATUS: Full code Disposition: pending colonoscopy. Patient's plan and care discussed with my attending, Dr. Salgado and senior resident, Dr. Freddy Evans, DO PGY-1 ([facility] Resident)
--- NOTE | 2025-06-21 12:58 | PC.SS ---
Rounding: Pending Colonoscopy, DC plan home
[2025-06-21] MEDS: SIMETHICONE 80 MG CHEW PO (22:55)
[2025-06-22] VITALS: BP 106/58; PULSE 68; PULSE 72; RESP 22; TEMP 36.2; O2SAT 92
[2025-06-22 04:00] VITALS: BP 130/75; PULSE 70; RESP 16; TEMP 36.1; O2SAT 96
[2025-06-22 06:06] LABS: Basophils # (Auto) 0.0 Thou/mm3 (0.0-0.2); Basophils % (Auto) 0 % (0-2.5); Eosinophils # (Auto) 0.1 Thou/mm3 (0.0-0.5); Eosinophils % (Auto) 1 % (0-10); Hematocrit 30.2 % (36.0-46.0); Immature Granulocytes Auto 0.02 Thou/mm3 (0.00-0.00); Lymphocytes # (Auto) 0.7 Thou/mm3 (1.0-4.8); Lymphocytes % (Auto) 12 % (10-50); Mean Corpuscular HGB Conc 28.5 g/dl (31.0-37.0); Mean Corpuscular Hemoglobin 21.4 pg (25.0-35.0); Mean Corpuscular Volume 75 fL (80-100); Monocytes # (Auto) 0.5 Thou/mm3 (0.0-0.8); Monocytes % (Auto) 8 % (0-12); Neutrophils # (Auto) 4.7 Thou/mm3 (1.8-7.7); Neutrophils % (Auto) 78 % (37-80); Nucleated Red Blood Cell # 0.00 Thou/mm3 (0.00-0.00); Nucleated Red Blood Cell % 0 /100 WBC (0); Platelet Count 293 Thou/mm3 (140-440); RDW Standard Deviation 58.9 fL (36.4-46.3); Red Blood Count 4.02 Miln/mm3 (4.00-5.20); White Blood Count 6.0 Thou/mm3 (3.6-11.0)
[2025-06-22 06:14] LABS: Hemoglobin 8.6 g/dL (12.0-16.0)
[2025-06-22 06:34] LABS: Alanine Aminotransferase 12 U/L (10-49); Albumin, Serum 4.2 gm/dL (3.4-4.8); Albumin/Globulin Ratio 1.8 (1.2-2.2); Alkaline Phosphatase 103 U/L (46-116); Anion Gap 11 (7-16); Aspartate Amino Transferase 21 U/L (0-34); BUN/Creatinine Ratio 15 Ratio (12-20); Bilirubin,Total 0.5 mg/dL (0.3-1.2); Blood Urea Nitrogen 9 mg/dL (9-23); Calcium 9.4 mg/dL (8.3-10.6); Calcium (Corrected) 9.4 mg/dL (8.5-10.1); Carbon Dioxide 23.4 mMol/L (20.0-31.0); Chloride 109 mMol/L (98-107); Creatinine (Component) 0.6 mg/dL (0.6-1.3); Estimated Creatinine Clearance 80.9 mL/min (>60); Globulin 2.3 gm/dL (2.3-3.5); Glucose 92 mg/dL (74-106); Osmolality,Calculated 283 (275-295); Potassium 3.7 mMol/L (3.4-5.1); Sodium 143 mMol/L (136-145); Total Protein 6.5 gm/dL (5.7-8.2); eGFR > 60 See Note
[2025-06-22] MEDS: ACETAMINOPHEN 325 MG TABLET 650 MG PO (07:32)
[2025-06-22 08:00] VITALS: PULSE 86
[2025-06-22] MEDS: IRON SUCROSE CPLX INJ 20 MG/ML VIAL 5 ML 200 MG IVP (08:28)
--- NOTE | 2025-06-22 09:56 | ESDS_ITS ---
<Statement entered by Paddy Salgado MD - 06/25/25 17:41> I reviewed above note and agree with findings and plans. I have also personally examined the patient with medicine team and went over assessment and plan with medical team including culinary intern and resident physician. <Statement entered by Izabella Hayes MD - 06/22/25 20:32> Note reviewed, I agree with most of its contents and agree with the patient's care as documented by Dr. Salgado. Patient admitted for acute blood loss anemia. EGD and colonoscopy did not show any evidence of bleeding. Hb remained around 8 s/p 2 untis pRBC and two IV iron infusions. Patient should get further workup done outpatient for iron deficiency anemia. The patient's management plan was discussed with my attending physician Dr. Salgado. Izabella Hayes, PGY-2 Planned Discharge Date 06/22/25 DS: Providers Provider Date of admission: 06/21/25 14:14 Primary care physician: CAT[facility] Hebert([facility] Admitting Provider: Paddy Salgado MD Attending Provider on Admission: Paddy Salgado MD Consults: 06/19/25 14:01 Consult to Gastroenterology Stat Comment: UGIB Consulting Provider: Lamar Gomez Attending Provider on DC: Paddy Salgado MD Discharging Provider: Paddy Salgado MD DS: Diagnosis Problem List Completed Was Problem List Reviewed/Reconciled?: Yes Hospital Course Hospital Course Hospital course: Ms. Ling is a 65-year-old female with past medical history significant for hypertension, symptomatic anemia requiring blood transfusions, osteoarthritis who presented to the ED on 06/19/2025 with low hemoglobin of 6.3 noted by her PCP. Repeat Hgb in the ED was 6. FOBT was positive but MARIAH was negative for melanotic stool. GI was consulted and recommended upper endoscopy and colonoscopy to workup possible GI bleed. Patient was transfused with 2 units of PRBCs and admitted for GI bleed workup. EGD on 06/20 demonstrated showed erythematous gastritis, erythematous duodenitis, but normal esophagous, and no obvious source of bleeding. Iron panel was notable for Fe 14 (L), TIBC 404, Iron Sat 3 (L) ,and ferritin 6 (L) On 06/21 patient was started on IV iron sucrose and went for colonoscopy which demonstrated small mouth diverticulae and a grade III internal hemorrhoid which was banded. No obvious source of bleeding was found. On 06/22, patient remained hemodynamically stable, no abdominal pain, melanotic stool, or nausea/vomiting. Hgb remained stable around 8 which is where it hovered around after her two PRBC infusions. She was given a second bag of IV iron. At this point, the patient was medically cleared and she was subsequently discharged in stable condition. Recommendations: Resume previous medications. Continue taking amlodipine 5mg daily for blood pressure control. Stop taking losartan 50mg until you follow up with PCP. Follow up with PCP and consider getting further workup by talent sourcing specialist for your iron deficiency anemia. Discharge Diagnoses: #Iron Deficiency Anemia #Grade III Internal Hemorrhoid #Diverticulosis #HTN Patient's plan and care discussed with my attending, Dr. Salgado and my senior Dr. Hayes. Jonathan Evans, DO PGY-1 ([facility] Resident) Time Spent with Patient Time attestation: Total time spent providing and/or coordinating discharge services: Time spent: Greater than 30 minutes Exam Vital Signs Temp Pulse Resp BP Pulse Ox O2 Del Method O2 Flow Rate 97.0 F 70 16 130/75 96 Room Air 3 06/22/25 04:00 06/22/25 04:00 06/22/25 04:00 06/22/25 04:00 06/22/25 04:00 06/22/25 04:00 06/21/25 15:25 Narrative Exam General:Middle age female, walking around no acute distress. HEENT: No cervical lymphadenopathy, Mucosa moist without lesion. Pupils are equal and reactive to light bilaterally Cardiovascular: Normal S1 and S2. Regular rate and rhythm. No murmur appreciated Respiratory: Clear to auscultation bilaterally without wheezes or crackles. Abdomen: Soft, nontender, not distended Skin: Dry, no rashes or bruising Musculoskeletal: No gross injuries. Able to move all 4 extremities. Some varicose veins in the ankles. Neuro: Alert and oriented x3. No focal neuro deficits. Psych: Normal affect and mood Discharge Plan Plan Patient Disposition: HOME (Self Care) Patient condition on transfer: Stable Prescriptions/Referrals Prescriptions/Med Rec: New amlodipine 5 mg tablet 5 mg PO QDAY Qty: 30 0RF Continued acetaminophen [Acetaminophen Pain Relief] 500 mg Tablet 500 mg PO QID PRN (Reason: Pain) diclofenac sodium 50 mg tablet,delayed release (DR/EC) 50 mg PO BID PRN (Reason: pain) Held losartan 50 mg tablet 50 mg PO QDAY PRN (Reason: high blood pressure) Hold Instructions: Resume on 07/06/25. Resume medication after follow up with PCP Discontinued amlodipine 10 mg Tablet 10 mg PO QDAY amlodipine 5 mg tablet 5 mg PO DAILY Patient Comments: TAKE ONE TABLET BY MOUTH EVERY DAY HIGH BLOOD PRESSURE Referrals: Kerry Freeman FNP ([facility]) [Primary Care Provider] Patient/Caregiver Discharge Instructions Discharge Activity: activity as tolerated Other Discharge Activity Instructions:: Resume previous medications. Continue taking amlodipine 5mg daily for blood pressure control. Stop taking losartan 50mg until you follow up with PCP. Follow up with PCP and consider getting further workup by talent sourcing specialist for your iron deficiency anemia. Reanude ewing medicaci?n anterior. Consulte con ewing m?dico de cabecera y considere realizarle estudios adicionales con un hemat?logo para ewing anemia ferrop?marshall. Education Materials: Anemia, ED Anemia, Iron-Deficiency (Adult) Print Language: Icelandic Stand Alone Forms: Love Award Info., Patient Portal Info Letter Discharge Order Discharge Orders: Discharge (Routine); Ordered 06/22/25 Ordered By: Izabella Hayes Quality Discharge Quality Measures VTE prophylaxis
--- NOTE | 2025-06-22 12:06 | PC.NURSE ---
PATIENT IS WAITING FOR HER RIDE.
--- NOTE | 2025-06-22 12:07 | PC.NURSE ---
PATIENT BP 156/93, DR. KRISHNAMURTHY MADE AWARE. NO NEW ORDERS, TO PUT THEM IN.
[2025-06-22 12:18] VITALS: BP 156/93; PULSE 82
[2025-06-22 14:27] VITALS: BP 139/88; PULSE 68; RESP 18; TEMP 37.1
--- NOTE | 2025-06-22 20:28 | ESPR_ITS ---
Documentation for date of: 06/22/25 Subjective Subjective Interval history: Late entry for the note patient evaluated hemoglobin hematocrit 8.6 and 30.2 Colonoscopy showed large internal hemorrhoids banding of the internal hemorrhoids done Upper endoscopy showed gastritis Okay to discharge home Exam Vital Signs Temp Pulse Resp BP Pulse Ox O2 Del Method O2 Flow Rate 98.7 F 68 18 139/88 H 96 Room Air 3 06/22/25 14:27 06/22/25 14:27 06/22/25 14:27 06/22/25 14:27 06/22/25 04:00 06/22/25 04:00 06/21/25 15:25 Objective Labs 06/22/25 04:50 06/22/25 04:50 Labs: Laboratory Results - last 24 hr 06/22/25 04:50 WBC 6.0 RBC 4.02 Hgb 8.6 L Hct 30.2 L MCV 75 L MCH 21.4 L MCHC 28.5 L RDW Std Deviation 58.9 H Plt Count 293 Neut % (Auto) 78 Lymph % (Auto) 12 [place] % (Auto) 8 Eos % (Auto) 1 Baso % (Auto) 0 Neut # (Auto) 4.7 Lymph # (Auto) 0.7 L [place] # (Auto) 0.5 Eos # (Auto) 0.1 Baso # (Auto) 0.0 Immature Gran # (Auto) 0.02 H Absolute Nucleated RBC 0.00 Immature Gran % 0 Nucleated RBC % 0 Sodium 143 Potassium 3.7 Chloride 109 H Carbon Dioxide 23.4 Anion Gap 11 BUN 9 Creatinine 0.6 Estim Creat Clear Calc 80.9 eGFR > 60 BUN/Creatinine Ratio 15 Glucose 92 Calculated Osmolality 283 Calcium 9.4 Corrected Calcium 9.4 Total Bilirubin 0.5 AST 21 ALT 12 Alkaline Phosphatase 103 Total Protein 6.5 Albumin 4.2 Globulin 2.3 Albumin/Globulin Ratio 1.8 Impressions Impression: GI blood loss is most likely bleeding from the internal hemorrhoids requiring band ligation Outpatient follow-up if necessary if the patient drops hemoglobin hematocrit she will need a capsule endoscopy Assessment & Plan A&P Narrative # Unexplained iron deficiency anemia Plan Agree with the blood transfusion Consent obtained for fiberoptic esophagogastroduodenoscopy initially under intravenous moderate sedation because of the history of diclofenac usage If negative will schedule a fiberoptic colonoscopy Thank you very much for the opportunity to participate in the care of this patient Other medical problems include Essential hypertension Time Spent With Patient Time: Total time spent is greater than 50% in coordination of care (as documented) at patient's floor/unit and/or counseling patient:
== END 2025-06-22 14:35 | disposition home or self-care (01) | DRG 347 ==
LOC: SERX 16:01 → SERHOLD 16:11 → S3SX 17:47
PROVIDERS: Nurse Practitioner Family; Specialist; Admitting Provider Internal Medicine; Emergency Provider Family Medicine; PCP Nurse Practitioner Primary Care; Visit Provider Internal Medicine
PROC: 0DJ08ZZ Inspection of Upper Intestinal Tract, Via Natural or Artificial Opening Endoscopic (ICD-10-PCS; CPT 43239; principal; 2025-06-20 15:30)
PROC: 0DJD8ZZ Inspection of Lower Intestinal Tract, Via Natural or Artificial Opening Endoscopic (ICD-10-PCS; CPT 45378; principal; 2025-06-21 14:45)
DX: K64.2 Third degree hemorrhoids (principal); K29.71 Gastritis, unspecified, with bleeding; K29.81 Duodenitis with bleeding; K57.31 Diverticulosis of large intestine without perforation or abscess with bleeding; D62 Acute posthemorrhagic anemia; I10 Essential (primary) hypertension; M19.90 Unspecified osteoarthritis, unspecified site; K31.89 Other diseases of stomach and duodenum; D50.9 Iron deficiency anemia, unspecified
CPT/HCPCS: 36415; 36430; 74177; 80053; 81001; 82270; 82728; 83540; 83550; 84484; 85014; 85018; 85025; 85610; 85730; 86850; 86900; 86901; 86923; 93005; 93225; 96374; 96376; 99284; A4217; A4649; G0378; J1200; J1756; J2250; J2470; J3010; P9016; Q9967; A9270

== ENCOUNTER → 2025-07-30 | Outpatient (CLI) | payer MEDICARE, MEDICAID, SELFPAY ==
--- NOTE | 2025-07-30 09:30 | ECHO_ITS ---
Patient Info Name: Sussy Ling Age: 65 years : 1960 Gender: Female Ht: 147 cm Wt: 73 kg BSA: 1.76 m2 BP: 158 / 85 mmHg HR: 59 bpm Heart Rhythm: Sinus Rhythm Exam Date: 07/30/2025 10:27 AM Admit Date: 07/30/2025 Site: [facility] Room Number: Echo room Patient Status: O Technical Quality: Fair Exam Type: CA echo doppler complete Cordwainer: Estella Hernandez Ordering Physician: Kerry Freeman ([facility]) Referring Physician: Kerry Freeman ([facility]) Study Info Indications Cardiac murmur, unspecified - Primary Location: SDIM Left Ventricular Outflow Tract Name Value Normal LVOT 2D LVOT Diameter 1.9 cm LVOT Doppler LVOT Peak Velocity 129 cm/s LVOT Mean Gradient 3 mmHg LVOT VTI 31 cm LVOT VTI/AV VTI Ratio 0.7 LVOT Stroke Volume 88 ml Pulmonic Valve Name Value Normal PV Doppler PV Peak Velocity 124 cm/s Mitral Valve Name Value Normal MV Doppler MV Decel Isabela 452 cm/s2 MV PHT 54 ms MV Area (PHT) 4.1 cm2 4.0-5.0 MV Diastolic Function MV E Peak Velocity 84 cm/s MV A Peak Velocity 100 cm/s MV E/A 0.8 MV Annular TDI MV Septal e' Velocity 6.3 cm/s MV E/e' (Septal) 13.4 MV Lateral e' Velocity 9.5 cm/s MV E/e' (Lateral) 8.9 MV e' Average 7.89 cm/s MV E/e' (Average) 11.1 Tricuspid Valve Name Value Normal TV Regurgitation Doppler TR Peak Velocity 280 cm/s Estimated PAP/RSVP RA Pressure 8 mmHg <=5 PA Systolic Pressure 39 mmHg <36 RV Systolic Pressure 39 mmHg <36 Aortic Valve Name Value Normal AV 2D/MM AV Cusp Sep (MM) 1.1 cm AV Doppler AV Peak Velocity 198 cm/s AV Mean Gradient 7 mmHg AV VTI 46 cm AV Area (Cont Eq VTI) 1.9 cm2 >=3.0 AV Area (Cont Eq Arvind) 1.8 cm2 AV DI (Arvind) 0.65 AV Regurgitation 2D LVOT Area 2.8 cm2 Ventricles Name Value Normal LV Dimensions 2D/MM IVS Diastolic Thickness (2D) 1.2 cm 0.6-0.9 LVID Diastole (2D) 4.3 cm 3.8-5.2 LVIW Diastolic Thickness (2D) 1.1 cm 0.6-0.9 LVID Systole (2D) 2.7 cm 2.2-3.5 LVOT Diameter 1.9 cm LV Mass (2D Cubed) 173.65 g 67.00-162.00 LV Mass Index (2D Cubed) 99 g/m2 43-95 Relative Wall Thickness (2D) 0.51 <=0.42 IVS/LVIW Diastolic Thickness (2D) 1.09 0.00-1.50 LV Fractional Shortening/Ejection Fraction 2D/MM LV Fractional Shortening (2D) 37 % 27-45 LV EF (2D Teichholz) 67 % Atria Name Value Normal LA Dimensions LA Volume (4C A-L) 51 ml LA Volume (BP A-L) 44 ml Left Ventricle Left ventricular chamber dimension is normal. Left ventricular systolic function is normal with visually estimated ejection fraction of 60-65%. There is mild concentric hypertrophy noted in the left ventricle. Left ventricular segmental wall motion is normal. There is grade I diastolic dysfunction in the left ventricle. Right Ventricle Right ventricular chamber dimension is normal. Right ventricular systolic function is normal. Left Atrium Left atrial chamber dimension is moderately enlarged. Right Atrium Right atrial chamber dimension is normal. Aortic Valve The aortic valve is trileaflet. There is no aortic valve sclerosis. There is no aortic valve stenosis with a peak velocity of 198 cm/s, mean gradient of 7 mmHg, and aortic valve area of 1.9 cm2. There is no aortic valve regurgitation. Pulmonic Valve The pulmonic valve is normal. There is no pulmonic valve stenosis. There is no pulmonic regurgitation. Mitral Valve The mitral valve has normal leaflets. There is no mitral valve stenosis. There is mild mitral valve regurgitation. Tricuspid Valve The tricuspid valve leaflets are normal. There is no tricuspid valve stenosis. There is mild to moderate tricuspid valve regurgitation. Pulmonary hypertension, estimated pulmonary arterial systolic pressure is 39 mmHg and systemic blood pressure of 158 mmHg in systole. Pericardium/Pleural The pericardium appears normal. There is no pericardial effusion. No pleural effusion visualized. Inferior Vena Cava Normal inferior vena cava with >50% collapse upon inspiration consistent with normal right atrial pressure, 8 mmHg. Aorta The aortic measurements are indexed to age and body surface area. The aortic root at the sinus of Valsalva is not well visualized. The prox ascending aorta is not well visualized. Summary 1. Left ventricle size is normal and systolic function is normal. Visually estimated ejection fraction is 60-65%. There is grade I diastolic dysfunction.There is mild concentric hypertrophy noted. 2. Right ventricle size is normal and systolic function is normal. Estimated RVSP is 39 mmHg. Mild HTN. 3. There is mild mitral valve regurgitation. 4. There is mild to moderate tricuspid valve regurgitation. 5. Normal IVC with estimated RA pressure 8 mmHg. Report Signatures Finalized by Brad Johnson on 08/03/2025 01:57 PM
== END | disposition home or self-care (01) ==
LOC: SDIM 09:02
PROVIDERS: PCP Physician Assistant; Referring Provider Nurse Practitioner Primary Care; Visit Provider Nurse Practitioner Primary Care
DX: I08.1 Rheumatic disorders of both mitral and tricuspid valves (principal); I10 Essential (primary) hypertension
CPT/HCPCS: 93306

== ENCOUNTER → 2025-08-24 | Outpatient (CLI) | payer MEDICARE, MEDICAID, SELFPAY ==
--- NOTE | 2025-08-24 14:30 | XR_ITS ---
Examination: Venous duplex lower extremity sonogram, bilateral. Date and time of exam: August 24, 2025, 1431 hours INDICATIONS: Bilateral leg swelling beginning 3 years ago Technique: Multiple sonographic images of the deep venous system have been obtained. B-mode/2-D grayscale imaging of vascular structures and Doppler spectral analysis (waveforms) and color performed Both legs are examined. Findings: Deep venous systems do not demonstrate abnormal echogenicity. All visualized deep veins exhibit compressibility. All visualized deep veins exhibit augmentation. Impression: Negative for deep vein thrombosis
== END | disposition home or self-care (01) ==
LOC: CDIM 14:12
PROVIDERS: PCP Nurse Practitioner Primary Care; Referring Provider Nurse Practitioner Primary Care; Visit Provider Nurse Practitioner Primary Care
DX: I83.93 Asymptomatic varicose veins of bilateral lower extremities (principal)
CPT/HCPCS: 93970

== ENCOUNTER → 2025-09-22 | Outpatient (CLI) | payer MEDICARE, MEDICAID, SELFPAY ==
[2025-09-22 10:19] LABS: Basophils # (Auto) 0.0 Thou/mm3 (0.0-0.2); Basophils % (Auto) 0 % (0-2.5); Eosinophils # (Auto) 0.1 Thou/mm3 (0.0-0.5); Eosinophils % (Auto) 1 % (0-10); Hematocrit 42.6 % (36.0-46.0); Hemoglobin 13.8 g/dL (12.0-16.0); Immature Granulocytes Auto 0.03 Thou/mm3 (0.00-0.00); Immature Reticulocyte Fraction 12.2 % (3.0-15.9); Lymphocytes # (Auto) 1.3 Thou/mm3 (1.0-4.8); Lymphocytes % (Auto) 28 % (10-50); Mean Corpuscular HGB Conc 32.4 g/dl (31.0-37.0); Mean Corpuscular Hemoglobin 28.5 pg (25.0-35.0); Mean Corpuscular Volume 88 fL (80-100); Monocytes # (Auto) 0.4 Thou/mm3 (0.0-0.8); Monocytes % (Auto) 9 % (0-12); Neutrophils # (Auto) 2.8 Thou/mm3 (1.8-7.7); Neutrophils % (Auto) 61 % (37-80); Nucleated Red Blood Cell # 0.00 Thou/mm3 (0.00-0.00); Nucleated Red Blood Cell % 0 /100 WBC (0); Platelet Count 250 Thou/mm3 (140-440); RDW Standard Deviation 45.0 fL (36.4-46.3); Red Blood Count 4.84 Miln/mm3 (4.00-5.20); Reticulocyte % (Auto) 1.6 % (0.5-1.5); Reticulocyte Absolute Auto 75.5 Biln/L (25.0-75.0); Reticulocyte Hgb Content 36.2 pg (28.0-35.0); White Blood Count 4.6 Thou/mm3 (3.6-11.0)
[2025-09-22 10:36] LABS: Vitamin B12 718 pg/mL (211-911)
[2025-09-22 10:41] LABS: Alanine Aminotransferase 15 U/L (10-49); Albumin, Serum 4.5 gm/dL (3.4-4.8); Albumin/Globulin Ratio 1.9 (1.2-2.2); Alkaline Phosphatase 122 U/L (46-116); Anion Gap 11 (7-16); Aspartate Amino Transferase 21 U/L (0-34); BUN/Creatinine Ratio 26 Ratio (12-20); Bilirubin,Total 0.4 mg/dL (0.3-1.2); Blood Urea Nitrogen 18 mg/dL (9-23); Calcium 9.6 mg/dL (8.3-10.6); Calcium (Corrected) 9.6 mg/dL (8.5-10.1); Carbon Dioxide 26.2 mMol/L (20.0-31.0); Chloride 109 mMol/L (98-107); Creatinine (Component) 0.7 mg/dL (0.6-1.3); Ferritin 19 ng/mL (7.3-270.7); Globulin 2.4 gm/dL (2.3-3.5); Glucose 90 mg/dL (74-106); Iron 110 mcg/dL (50-170); Osmolality,Calculated 292 (275-295); Percent Iron Saturation 31 % (20-55); Potassium 4.0 mMol/L (3.4-5.1); Sodium 146 mMol/L (136-145); Total Iron Binding Capacity 345 mcg/dL (250-425); Total Protein 6.9 gm/dL (5.7-8.2); Unsaturated Iron Binding 235 (225-295); eGFR > 60 See Note
== END | disposition home or self-care (01) ==
LOC: COPL 09:09
PROVIDERS: PCP Nurse Practitioner Primary Care; Referring Provider Specialist; Visit Provider Specialist
DX: D50.0 Iron deficiency anemia secondary to blood loss (chronic) (principal)
CPT/HCPCS: 36415; 80053; 82607; 82728; 83540; 83550; 84443; 85025; 85046